=== PATIENT | female | born 1985 | race Caucasian/White ===

== ENCOUNTER → 2017-04-26 | Outpatient (CLI) | payer MEDICAID ==
[2017-04-26 13:53] LABS: FREE T3 4.06 pg/mL (2.77-5.27)
[2017-04-26 14:06] LABS: THYROID STIMULATING HORMONE 5.38 uIU/mL (0.47-4.68)
== END ==
LOC: OD 12:34
PROVIDERS: ATTEND Pediatrics
DX: E03.9 Hypothyroidism, unspecified (principal)
CPT/HCPCS: 36415; 84439; 84443; 84481

== ENCOUNTER → 2018-09-11 | Outpatient (CLI) | payer MEDICAID ==
[2018-09-11 13:32] LABS: FREE T3 3.51 pg/mL (2.77-5.27); FREE T4 (FREE THYROXINE) 0.9 ng/dL (0.78-2.19)
[2018-09-11 13:46] LABS: THYROID STIMULATING HORMONE 13.3 uIU/mL (0.47-4.68)
== END ==
LOC: OD 11:51
PROVIDERS: ATTEND Pediatrics
DX: E03.9 Hypothyroidism, unspecified (principal)
CPT/HCPCS: 36415; 84439; 84443; 84481